=== PATIENT | female | born 1990 | race Caucasian/White ===

== ENCOUNTER 2019-09-05 07:25 | Inpatient (IN) | payer OTHER ==
[~2019-09-05] VITALS: Ht 162.6 cm; Wt 103.1 kg
[2019-09-05 08:07] VITALS: BP 139/88
[2019-09-05 08:09] LABS: MICROSCOPIC INDICATED
[2019-09-05] MEDS ORDERED: OXYTOCIN 30U/ 0.9% NaCL 500ML 500 ML IV ONE (08:34)
[2019-09-05] MEDS ORDERED: D5%-LACTATED RINGERS 1,000 ML IV SCH (08:34)
[2019-09-05] MEDS ORDERED: LACTATED RINGERS 1,000 ML IV SCH (08:34)
[2019-09-05] MEDS ORDERED: TERBUTALINE 1 MG/ML, 1ML IVPush PRN (09:00)
[2019-09-05] MEDS ORDERED: FENTANYL PF 100 MCG/2ML IVPush PRN (09:00)
[2019-09-05] MEDS ORDERED: ONDANSETRON 2MG/ML, 2ML IVPush PRN (09:00)
[2019-09-05] MEDS ORDERED: CALCIUM CARBONATE 500 MG TAB.CHEW PO PRN ×2 (09:00→11:30)
[2019-09-05] MEDS ORDERED: TERBUTALINE 1 MG/ML, 1ML SQ PRN (09:00)
[2019-09-05] MEDS ORDERED: FENTANYL PF 100 MCG/2ML IV PRN (09:00)
[2019-09-05 09:19] LABS: BASOPHILS # (AUTO) 0.03 x10^3/uL (0-0.1); BASOPHILS % (AUTO) 0 % (0-1); EOSINOPHILS # (AUTO) 0.09 x10^3/uL (0-0.4); EOSINOPHILS % (AUTO) 1 % (1-7); LYMPHOCYTES % (AUTO) 15 % (22-44); MD NO; MEAN CORPUSCULAR HEMOGLOBIN 30.3 pg (27.0-34.8); MEAN CORPUSCULAR HGB CONC 33.3 g/dL (32.4-35.8); MEAN CORPUSCULAR VOLUME 91.1 fL (80-100); MEAN PLATELET VOLUME 7.2 fL (7.4-10.4); MONOCYTES # (AUTO) 0.78 x10^3/uL (0.2-0.8); MONOCYTES % (AUTO) 7 % (2-9); NEUTROPHILS # (AUTO) 8.97 x10^3/uL (1.8-6.8); NEUTROPHILS % (AUTO) 77 % (42-75); PLATELET COUNT 202 x10^3/uL (130-400); RED BLOOD COUNT 5.12 x10^6/uL (3.82-5.3); RED CELL DISTRIBUTION WIDTH 14.3 % (9.6-15.2)
[2019-09-05 09:28] LABS: ALBUMIN 2.8 g/dL (3.4-5.0); ANION GAP 9 mmol/L (5-15); CALCIUM 9.3 mg/dL (8.5-10.1); CHLORIDE 110 mmol/L (98-107)
[2019-09-05] MEDS ORDERED: SODIUM CITRATE/CITRIC ACID 30 ML UDC PO ONE (09:30)
[2019-09-05] MEDS ORDERED: CLINDAMYCIN PMX 900MG/50ML 50 ML IVPB ONE (09:30)
[2019-09-05] MEDS ORDERED: LACTATED RINGERS 1,000 ML IVBOLUS ONE (09:30)
[2019-09-05] MEDS ORDERED: morphine SULFATE/PF 0.5 MG/ML, 10ML ONE (09:30)
[2019-09-05] MEDS ORDERED: METOCLOPRAMIDE 5 MG/ML, 2ML IV ONE (09:30)
[2019-09-05 09:32] LABS: ALANINE AMINOTRANSFERASE 24 U/L (12-78); ALKALINE PHOSPHATASE 209 U/L (45-117); BILIRUBIN,TOTAL 0.4 mg/dL (0.2-1.0); CREATININE 0.64 mg/dL (0.55-1.02); TOTAL PROTEIN 7.4 g/dL (6.4-8.2)
[2019-09-05] MEDS ORDERED: EPINEPHRINE 1 MG/ML, 1ML ONE (09:36)
[2019-09-05] MEDS ORDERED: NEWBORN KIT ONE (09:39)
[2019-09-05] MEDS ORDERED: SODIUM CITRATE/CITRIC ACID 30 ML UDC ONE (09:39)
[2019-09-05] MEDS ORDERED: OXYTOCIN 30U/ 0.9% NaCL 500ML 500 ML ONE (09:39)
[2019-09-05] MEDS ORDERED: METOCLOPRAMIDE 5 MG/ML, 2ML ONE (09:39)
[2019-09-05] MEDS ORDERED: CLINDAMYCIN PMX 900MG/50ML 50 ML ONE (09:43)
[2019-09-05] MEDS ORDERED: WATER-INJECTION,STERILE 10 ML IV ONE (10:22)
[2019-09-05] MEDS ORDERED: OXYTOCIN 10 UNITS/ML, 1ML ONE (10:22)
[2019-09-05] MEDS ORDERED: PHENYLEPHRINE 10 MG/ML ONE (10:22)
[2019-09-05] MEDS ORDERED: EPHEDRINE 50 MG/ML, 1ML ONE (10:22)
[2019-09-05] MEDS ORDERED: CEFAZOLIN 1,000 MG ONE (10:22)
[2019-09-05] MEDS ORDERED: ONDANSETRON 2MG/ML, 2ML ONE (10:22)
[2019-09-05] MEDS: OXYTOCIN 30U/ 0.9% NaCL 500ML 500 ML IV SCH ×2 (11:10→21:10)
[2019-09-05] MEDS: LACTATED RINGERS 1,000 ML IV SCH ×4 (11:10→21:10)
[2019-09-05] MEDS ORDERED: KETOROLAC 30 MG/1 ML ONE (11:25)
[2019-09-05] MEDS: KETOROLAC 30 MG/1 ML IV PRN ×2 (11:27→20:19)
[2019-09-05] MEDS ORDERED: ACETAMINOPHEN 325 MG TABLET PO PRN (11:30)
[2019-09-05] MEDS ORDERED: morphine SULFATE 10 MG/ML, 1ML IVPush PRN ×2 (11:30)
[2019-09-05] MEDS ORDERED: MISOPROSTOL 200 MCG TABLET PR PRN (11:30)
[2019-09-05] MEDS ORDERED: METOCLOPRAMIDE 5 MG/ML, 2ML IV PRN (11:30)
[2019-09-05] MEDS ORDERED: RHOGAM FROM BLOOD BANK 1 NOTE EA IM/IV ONE (11:30)
[2019-09-05] MEDS ORDERED: MEASLES,MUMPS&RUBELLA VACC/PF 0.5 ML SQ-VACC PRN (11:30)
[2019-09-05] MEDS ORDERED: HYDROmorphone 2 MG/ML, 1ML ONE (11:42)
[2019-09-05] MEDS ORDERED: OXYcodone 5 MG/5 ML ORAL.SOL UDC ONE (11:42)
[2019-09-05] MEDS ORDERED: HYDROmorphone 2 MG/ML, 1ML IV ONE (12:00)
[2019-09-05] MEDS ORDERED: OXYcodone 5 MG/5 ML ORAL.SOL UDC PO PRN (12:00)
[2019-09-05 13:15] VITALS: BP 135/88
[2019-09-05] MEDS: ONDANSETRON 2MG/ML, 2ML IV PRN ×2 (15:54→22:27)
[2019-09-05 17:07] VITALS: BP 129/80
[2019-09-05 18:15] LABS: BASOPHILS # (AUTO) 0.03 x10^3/uL (0-0.1); BASOPHILS % (AUTO) 0 % (0-1); EOSINOPHILS # (AUTO) 0.06 x10^3/uL (0-0.4); EOSINOPHILS % (AUTO) 1 % (1-7); LYMPHOCYTES # (AUTO) 1.85 x10^3/uL (1-3.4); LYMPHOCYTES % (AUTO) 17 % (22-44); MD NO; MEAN CORPUSCULAR HEMOGLOBIN 30.8 pg (27.0-34.8); MEAN CORPUSCULAR VOLUME 90.3 fL (80-100); MEAN PLATELET VOLUME 7.6 fL (7.4-10.4); MONOCYTES # (AUTO) 0.57 x10^3/uL (0.2-0.8); MONOCYTES % (AUTO) 5 % (2-9); NEUTROPHILS # (AUTO) 8.72 x10^3/uL (1.8-6.8); NEUTROPHILS % (AUTO) 78 % (42-75); PLATELET COUNT 178 x10^3/uL (130-400); RED BLOOD COUNT 4.18 x10^6/uL (3.82-5.3); RED CELL DISTRIBUTION WIDTH 14.4 % (9.6-15.2)
[2019-09-05 19:35] VITALS: BP 125/80
[2019-09-05] MEDS: SIMETHICONE 80 MG CHEW TAB PO PRN (20:19)
[2019-09-05] MEDS: OXYcodone IR 5MG TABLET PO PRN (22:27)
[2019-09-06 00:24] VITALS: BP 128/82
[2019-09-06] MEDS: KETOROLAC 30 MG/1 ML IV PRN ×2 (02:27→08:53)
[2019-09-06] MEDS: SIMETHICONE 80 MG CHEW TAB PO PRN ×3 (02:27→20:26)
[2019-09-06] MEDS: LACTATED RINGERS 1,000 ML IV SCH ×5 (03:10→19:10)
[2019-09-06] MEDS: OXYcodone IR 5MG TABLET PO PRN ×5 (03:31→20:26)
[2019-09-06 03:36] VITALS: BP 114/71
[2019-09-06] MEDS: OXYTOCIN 30U/ 0.9% NaCL 500ML 500 ML IV SCH ×2 (05:16→17:10)
[2019-09-06] MEDS: PRENATAL VIT/IRON/FA 1 EACH TABLET PO SCH (07:34)
[2019-09-06] MEDS: ONDANSETRON 2MG/ML, 2ML IV PRN (07:34)
[2019-09-06] MEDS: DOCUSATE 100 MG CAPSULE PO PRN (07:35)
[2019-09-06 07:40] VITALS: BP 129/80
[2019-09-06] MEDS: ACETAMINOPHEN 325 MG TABLET PO PRN ×2 (11:42→20:28)
[2019-09-06] MEDS: IBUPROFEN 600 MG TABLET PO PRN ×2 (16:05→22:21)
[2019-09-06 20:45] VITALS: BP 132/85
[2019-09-07] MEDS: OXYcodone IR 5MG TABLET PO PRN ×5 (00:27→22:22)
[2019-09-07] MEDS: OXYTOCIN 30U/ 0.9% NaCL 500ML 500 ML IV SCH (03:10)
[2019-09-07] MEDS: LACTATED RINGERS 1,000 ML IV SCH ×2 (03:10→04:40)
[2019-09-07] MEDS: SIMETHICONE 80 MG CHEW TAB PO PRN ×3 (04:35→18:01)
[2019-09-07] MEDS: IBUPROFEN 600 MG TABLET PO PRN ×3 (04:35→21:07)
[2019-09-07] MEDS: ACETAMINOPHEN 325 MG TABLET PO PRN ×4 (04:36→18:01)
[2019-09-07] MEDS ORDERED: OXYC5CAP2 PO (07:55)
[2019-09-07] MEDS ORDERED: IBUP-1222 PO (07:55)
[2019-09-07 08:00] VITALS: BP 123/81
[2019-09-07] MEDS: DOCUSATE 100 MG CAPSULE PO PRN ×2 (08:46→21:07)
[2019-09-07] MEDS: PRENATAL VIT/IRON/FA 1 EACH TABLET PO SCH (08:46)
[2019-09-07 19:20] VITALS: BP_SYST 134; BP_SYST 145; BP_DIAS 85
[2019-09-07] MEDS ORDERED: DIPHENHYDRAMINE 25 MG CAPSULE PO PRN (21:00)
[2019-09-07 21:10] VITALS: BP 125/85
[2019-09-08] MEDS: ACETAMINOPHEN 325 MG TABLET PO PRN ×2 (02:30→07:49)
[2019-09-08] MEDS: OXYcodone IR 5MG TABLET PO PRN ×3 (02:30→10:33)
[2019-09-08] MEDS: IBUPROFEN 600 MG TABLET PO PRN (05:37)
[2019-09-08 07:25] VITALS: BP 122/83
[2019-09-08] MEDS: DOCUSATE 100 MG CAPSULE PO PRN (07:48)
[2019-09-08] MEDS: PRENATAL VIT/IRON/FA 1 EACH TABLET PO SCH (07:48)
== END 2019-09-08 12:50 | disposition home or self-care (01) | DRG 787 ==
LOC: LDOP 07:25 → LDIP 08:31 → 2NW 13:07
PROVIDERS: ADMIT Obstetrics & Gynecology; ATTEND Obstetrics & Gynecology
PROC: 10D00Z1 Extraction of Products of Conception, Low, Open Approach (ICD-10-PCS; principal; 2019-09-05)
PROC: 3E0234Z Introduction of Serum, Toxoid and Vaccine into Muscle, Percutaneous Approach (ICD-10-PCS; 2019-09-05)
DX: O69.81X0 Labor and delivery complicated by cord around neck, without compression, not applicable or unspecified (principal); O99.354 Diseases of the nervous system complicating childbirth; O36.8130 Decreased fetal movements, third trimester, not applicable or unspecified; O76 Abnormality in fetal heart rate and rhythm complicating labor and delivery; G43.909 Migraine, unspecified, not intractable, without status migrainosus; O77.0 Labor and delivery complicated by meconium in amniotic fluid; Z37.0 Single live birth; Z3A.39 39 weeks gestation of pregnancy; Z23 Encounter for immunization
CPT/HCPCS: 36415; 76819; 80053; 81001; 82570; 82803; 84156; 84550; 85025; 86592; 86850; 86900; 87086; G0378; J0171; J0690; J1170; J1885; J2274; J2405; J2270; J2370; J2590; J2765; J7120; Q0163

== ENCOUNTER 2020-12-12 11:55 | Outpatient (CLI) | payer OTHER ==
[~2020-12-12] VITALS: Ht 162.6 cm; Wt 104.5 kg
[~2020-12-12 11:55] MED LIST: IBUP-1222 PO; OXYC5CAP2 PO
[2020-12-12 12:10] VITALS: BP 120/75
[2020-12-13] MEDS ORDERED: PREN1TAB60 PO (17:15)
[2020-12-13] MEDS ORDERED: PANT40GR PO (17:16)
[2020-12-13] MEDS ORDERED: BUTA-193 PO (17:17)
[2020-12-13] MEDS ORDERED: DIPH25CA61 PO (17:18)
[2020-12-13] MEDS ORDERED: ACET325C6 PO (17:19)
== END 2020-12-12 14:50 | disposition home or self-care (01) ==
LOC: LDOP 11:55
PROVIDERS: ATTEND Obstetrics & Gynecology
DX: O36.8130 Decreased fetal movements, third trimester, not applicable or unspecified (principal); Z3A.38 38 weeks gestation of pregnancy
CPT/HCPCS: 59025; 76815

== ENCOUNTER 2020-12-13 15:49 | Inpatient (IN) | payer OTHER ==
[~2020-12-13] VITALS: Ht 162.6 cm; Wt 104.5 kg
[2020-12-13] MEDS ORDERED: METOCLOPRAMIDE 5 MG/ML, 2ML ONE (15:55)
[2020-12-13] MEDS ORDERED: SODIUM CITRATE/CITRIC ACID 15 ML UDC ONE ×2 (15:55→17:01)
[2020-12-13] MEDS ORDERED: OXYTOCIN 30U/ 0.9% NaCL 500ML 500 ML ONE ×2 (15:55→19:14)
[2020-12-13] MEDS ORDERED: NEWBORN KIT ONE (15:56)
[2020-12-13 16:23] LABS: BASOPHILS % (AUTO) 0 % (0-1); EOSINOPHILS % (AUTO) 0 % (1-7); LYMPHOCYTES % (AUTO) 18 % (22-44); MEAN CORPUSCULAR HEMOGLOBIN 30.5 pg (27.0-34.8); MEAN CORPUSCULAR HGB CONC 34.1 g/dL (32.4-35.8); MEAN PLATELET VOLUME 7.5 fL (7.4-10.4); MONOCYTES % (AUTO) 5 % (2-9); NEUTROPHILS % (AUTO) 77 % (42-75); PLATELET COUNT 198 x10^3/uL (130-400); RED BLOOD COUNT 4.87 x10^6/uL (3.82-5.3); RED CELL DISTRIBUTION WIDTH 14.2 % (9.6-15.2)
[2020-12-13] MEDS ORDERED: SODIUM CITRATE/CITRIC ACID 30 ML UDC PO ONE (16:30)
[2020-12-13] MEDS ORDERED: LACTATED RINGERS 1,000 ML IVBOLUS ONE (16:30)
[2020-12-13] MEDS: LACTATED RINGERS 1,000 ML IV SCH ×3 (16:57→19:30)
[2020-12-13] MEDS ORDERED: METOCLOPRAMIDE 5 MG/ML, 2ML IV ONE (17:00)
[2020-12-13] MEDS ORDERED: PREN1TAB60 PO (17:15)
[2020-12-13] MEDS ORDERED: PANT40GR PO (17:16)
[2020-12-13] MEDS ORDERED: BUTA-193 PO (17:17)
[2020-12-13] MEDS ORDERED: DIPH25CA61 PO (17:18)
[2020-12-13] MEDS ORDERED: ACET325C6 PO (17:19)
[2020-12-13] MEDS ORDERED: FENTANYL PF 100 MCG/2ML ONE (17:23)
[2020-12-13] MEDS ORDERED: HYDROmorphone 2 MG/ML, 1ML ONE ×3 (17:23→20:40)
[2020-12-13] MEDS ORDERED: CEFAZOLIN 1,000 MG ONE (17:23)
[2020-12-13] MEDS ORDERED: OXYTOCIN 10 UNITS/ML, 1ML ONE (17:23)
[2020-12-13] MEDS ORDERED: ONDANSETRON 2MG/ML, 2ML ONE (17:23)
[2020-12-13] MEDS ORDERED: KETOROLAC 30 MG/1 ML ONE (18:34)
[2020-12-13] MEDS ORDERED: DEXAMETHASONE 4 MG/ML, 1ML ONE (18:55)
[2020-12-13] MEDS ORDERED: DIPHENHYDRAMINE 50 MG/ML, 1ML ONE (19:21)
[2020-12-13] MEDS: OXYTOCIN 30U/ 0.9% NaCL 500ML 500 ML IV SCH (19:29)
[2020-12-13] MEDS ORDERED: RHOGAM FROM BLOOD BANK 1 NOTE EA IM/IV ONE (19:30)
[2020-12-13] MEDS ORDERED: METOCLOPRAMIDE 5 MG/ML, 2ML IV PRN (19:30)
[2020-12-13] MEDS ORDERED: FENTANYL PF 100 MCG/2ML IV PRN (19:30)
[2020-12-13] MEDS ORDERED: CALCIUM CARBONATE 500 MG TAB.CHEW PO PRN (19:30)
[2020-12-13] MEDS ORDERED: MEASLES,MUMPS&RUBELLA VACC/PF 0.5 ML SQ-VACC PRN (19:30)
[2020-12-13] MEDS ORDERED: ONDANSETRON 2MG/ML, 2ML IV PRN (19:30)
[2020-12-13] MEDS ORDERED: OXYcodone IR 5MG TABLET PO PRN (19:30)
[2020-12-13] MEDS ORDERED: HYDROmorphone 1 MG/ML, 1ML INJ IVPush PRN (19:30)
[2020-12-13] MEDS ORDERED: OXYcodone 5 MG/5 ML ORAL.SOL UDC PO PRN (19:30)
[2020-12-13] MEDS ORDERED: MISOPROSTOL 200 MCG TABLET PR PRN (19:30)
[2020-12-13] MEDS ORDERED: ACETAMINOPHEN 325 MG TABLET PO PRN (19:30)
[2020-12-13] MEDS ORDERED: ONDANSETRON 2MG/ML, 2ML IVPush PRN (19:30)
[2020-12-13] MEDS ORDERED: DIPHENHYDRAMINE 50 MG/ML, 1ML IVPush PRN (19:30)
[2020-12-13 21:20] VITALS: BP 115/71
[2020-12-13] MEDS: OXYcodone IR 5MG TABLET PO PRN (23:41)
[2020-12-13 23:48] VITALS: BP 117/70
[2020-12-14] MEDS: LACTATED RINGERS 1,000 ML IV SCH ×7 (01:00→16:41)
[2020-12-14] MEDS: KETOROLAC 30 MG/1 ML IV PRN ×2 (01:06→14:10)
[2020-12-14 02:52] LABS: BASOPHILS % (AUTO) 0 % (0-1); EOSINOPHILS % (AUTO) 0 % (1-7); LYMPHOCYTES % (AUTO) 9 % (22-44); MEAN CORPUSCULAR HEMOGLOBIN 30.1 pg (27.0-34.8); MEAN CORPUSCULAR HGB CONC 33.7 g/dL (32.4-35.8); MEAN PLATELET VOLUME 7.1 fL (7.4-10.4); MONOCYTES % (AUTO) 3 % (2-9); NEUTROPHILS % (AUTO) 88 % (42-75); PLATELET COUNT 169 x10^3/uL (130-400); RED BLOOD COUNT 4.29 x10^6/uL (3.82-5.3); RED CELL DISTRIBUTION WIDTH 13.6 % (9.6-15.2)
[2020-12-14] MEDS: OXYcodone IR 5MG TABLET PO PRN ×5 (03:49→20:35)
[2020-12-14 05:15] VITALS: BP 106/66
[2020-12-14] MEDS: OXYTOCIN 30U/ 0.9% NaCL 500ML 500 ML IV SCH ×2 (05:30→15:30)
[2020-12-14] MEDS: ACETAMINOPHEN 325 MG TABLET PO PRN ×4 (07:47→20:35)
[2020-12-14] MEDS: SIMETHICONE 80 MG CHEW TAB PO PRN ×2 (07:47→20:35)
[2020-12-14] MEDS: DOCUSATE 100 MG CAPSULE PO PRN ×2 (07:47→20:34)
[2020-12-14] MEDS: PRENATAL VIT/IRON/FA 1 EACH TABLET PO SCH (07:47)
[2020-12-14] MEDS: IBUPROFEN 600 MG TABLET PO PRN ×2 (07:47→20:35)
[2020-12-14 09:15] VITALS: BP 113/66
[2020-12-14] MEDS: morphine SULFATE 10 MG/ML, 1ML IVPush PRN ×3 (10:08→20:36)
[2020-12-14 13:20] VITALS: BP 97/63
[2020-12-14 16:31] VITALS: BP 106/71
[2020-12-14 19:21] VITALS: BP 103/66
[2020-12-15] MEDS: morphine SULFATE 10 MG/ML, 1ML IVPush PRN ×2 (01:01→05:19)
[2020-12-15] MEDS: ACETAMINOPHEN 325 MG TABLET PO PRN ×4 (01:01→14:05)
[2020-12-15] MEDS: OXYcodone IR 5MG TABLET PO PRN ×4 (01:02→14:05)
[2020-12-15] MEDS: IBUPROFEN 600 MG TABLET PO PRN ×2 (05:19→14:05)
[2020-12-15 07:37] VITALS: BP 103/70
[2020-12-15] MEDS: SIMETHICONE 80 MG CHEW TAB PO PRN (08:03)
[2020-12-15] MEDS: PRENATAL VIT/IRON/FA 1 EACH TABLET PO SCH (08:03)
[2020-12-15] MEDS: DOCUSATE 100 MG CAPSULE PO PRN (08:03)
[2020-12-15] MEDS ORDERED: IBUP-1222 PO (11:09)
[2020-12-15] MEDS ORDERED: oxycodone PO (11:10)
[2020-12-15] MEDS ORDERED: SENN-52 PO (11:11)
== END 2020-12-15 12:00 | disposition home or self-care (01) | DRG 787 ==
LOC: LDIP 15:49 → 2NW 21:14
PROVIDERS: ADMIT Obstetrics & Gynecology; ATTEND Obstetrics & Gynecology
PROC: 10D00Z1 Extraction of Products of Conception, Low, Open Approach (ICD-10-PCS; principal; 2020-12-13)
PROC: 3E0234Z Introduction of Serum, Toxoid and Vaccine into Muscle, Percutaneous Approach (ICD-10-PCS; 2020-12-13)
DX: O41.03X0 Oligohydramnios, third trimester, not applicable or unspecified (principal); O99.354 Diseases of the nervous system complicating childbirth; O99.214 Obesity complicating childbirth; O34.211 Maternal care for low transverse scar from previous cesarean delivery; E66.9 Obesity, unspecified; F32.9 Major depressive disorder, single episode, unspecified; F41.9 Anxiety disorder, unspecified; G43.909 Migraine, unspecified, not intractable, without status migrainosus; K21.9 Gastro-esophageal reflux disease without esophagitis; O99.344 Other mental disorders complicating childbirth; Z20.822 Contact with and (suspected) exposure to COVID-19; O69.82X0 Labor and delivery complicated by other cord entanglement, without compression, not applicable or unspecified; Z37.0 Single live birth; Z3A.38 38 weeks gestation of pregnancy; Z23 Encounter for immunization
CPT/HCPCS: 36415; 85025; 86592; 86850; 86900; 87635; G0378; J0690; J1100; J1170; J1885; J2405; J3010; J1200; J2270; J2590; J2765; J7120